=== PATIENT | male | born 1960 | race African-American/Black ===

== ENCOUNTER 2018-06-10 12:54 | Emergency (ER) | payer SELFPAY ==
[~2018-06-10] VITALS: Ht 193 cm; Wt 68.0 kg
[~2018-06-10 12:54] MED LIST: ASP81CT PO; ASP81TEC PO; BACL10TA PO; CLPD75T PO; CYCL10TA9 PO; HYDR-229 PO; META-84 PO; METO25TA2 PO; NAPR-243 PO; SMV20T PO; SULF1TAB35 PO
[2018-06-10] MEDS ORDERED: ASPIRIN 81 MG CHEW (CHILDREN'S ASA) ONE (12:58)
[2018-06-10] MEDS ORDERED: NITROGLYCERIN 0.4 MG SL TABS BTL 25'S SL ONE (12:58)
--- OUTSIDE RECORDS SUMMARY | 2018-06-10 12:58 | XMS REPORT | Continuity of Care Document ---
Author Author [facility] Organization [facility] Address Unknown Phone Unavailable Allergies Active Description Code Type Severity Reaction Onset Reported/Identified Relationship to Patient Clinical Status Yes No Known Drug Allergies [id number] Drug Allergy Unknown N/A 07/24/2010 Medications There is no data. Problems Date Dx Coded Attending Type Code Diagnosis Diagnosed By 02/12/2016 Ot 786.50 CHEST PAIN NOS 02/12/2016 BAIMA, LIMA L MANAGER FINANCIAL Ot 272.4 HYPERLIPIDEMIA NEC/NOS 02/12/2016 BAIMA, LIMA L MANAGER FINANCIAL Ot 414.00 CORON ATHEROSCLER NOS TYPE VESSEL, NATIV 01/21/2018 Ot 786.50 CHEST PAIN NOS 01/21/2018 BAIMA, LIMA L MANAGER FINANCIAL Ot 272.4 HYPERLIPIDEMIA NEC/NOS 01/21/2018 BAIMA, LIMA L MANAGER FINANCIAL Ot 414.00 CORON ATHEROSCLER NOS TYPE VESSEL, NATIV 01/21/2018 Ot 786.50 CHEST PAIN NOS 01/21/2018 BAIMA, LIMA L MANAGER FINANCIAL Ot 272.4 HYPERLIPIDEMIA NEC/NOS 01/21/2018 BAIMA, LIMA L MANAGER FINANCIAL Ot 414.00 CORON ATHEROSCLER NOS TYPE VESSEL, NATIV 01/21/2018 RACIEL MIGUEL MD Ot F10.10 ALCOHOL ABUSE, UNCOMPLICATED 01/21/2018 RACIEL MIGUEL MD Ot F15.10 OTHER STIMULANT ABUSE, UNCOMPLICATED 01/21/2018 RACIEL MIGUEL MD Ot F17.210 NICOTINE DEPENDENCE, CIGARETTES, UNCOMPL 01/21/2018 RACIEL MIGUEL MD Ot S12.300A UNSP DISP FX OF FOURTH CERVICAL VERTEBRA 01/21/2018 RACIEL MIGUEL MD Ot S12.400A UNSP DISP FX OF FIFTH CERVICAL VERTEBRA, 01/21/2018 RACIEL MIGUEL MD Ot W06.XXXA FALL FROM BED, INITIAL ENCOUNTER 01/21/2018 RACIEL MIGUEL MD Ot Y92.[address] [facility] 01/21/2018 RACIEL MIGUEL MD Ot Z79.02 EXTENSION SERVICE SPECIALIST IN CHARGE (CURRENT) USE OF ANTITHROMBOTI 01/21/2018 RACIEL MIGUEL MD Ot Z79.82 ASSISTED (CURRENT) USE OF ASPIRIN 01/24/2018 GREG LANCASTER MD Ot F10.10 ALCOHOL ABUSE, UNCOMPLICATED 01/24/2018 GREG LANCASTER MD Ot F15.10 OTHER STIMULANT ABUSE, UNCOMPLICATED 01/24/2018 GREG LANCASTER MD Ot R40.2142 COMA SCALE, EYES OPEN, SPONTANEOUS, EMR 01/24/2018 GREG LANCASTER MD Ot R40.2252 COMA SCALE, BEST VERBAL RESPONSE, ORIENT 01/24/2018 GREG LANCASTER MD Ot R40.2362 COMA SCALE, BEST MOTOR RESPONSE, OBEYS C 01/24/2018 GREG LANCASTER MD Ot R51 HEADACHE 01/24/2018 GREG LANCASTER MD Ot S01.01XA LACERATION WITHOUT FOREIGN BODY OF SCALP 01/24/2018 GREG LANCASTER MD Ot W06.XXXA FALL FROM BED, INITIAL ENCOUNTER 01/24/2018 GREG LANCASTER MD Ot W22.09XA STRIKING AGAINST OTHER STATIONARY OBJECT 01/24/2018 GREG LANCASTER MD Ot Y92.[address] [facility] 01/24/2018 GREG LANCASTER MD Ot Z79.02 ASSISTED (CURRENT) USE OF ANTITHROMBOTI 01/24/2018 GREG LANCASTER MD Ot Z79.82 ASSISTED (CURRENT) USE OF ASPIRIN 01/24/2018 RACIEL MIGUEL MD Ot F10.10 ALCOHOL ABUSE, UNCOMPLICATED 01/24/2018 RACIEL MIGUEL MD Ot F15.10 OTHER STIMULANT ABUSE, UNCOMPLICATED 01/24/2018 RACIEL MIGUEL MD Ot F17.210 NICOTINE DEPENDENCE, CIGARETTES, UNCOMPL 01/24/2018 RACIEL MIGUEL MD Ot S12.300A UNSP DISP FX OF FOURTH CERVICAL VERTEBRA 01/24/2018 RACIEL MIGUEL MD Ot S12.400A UNSP DISP FX OF FIFTH CERVICAL VERTEBRA, 01/24/2018 RACIEL MIGUEL MD Ot W06.XXXA FALL FROM BED, INITIAL ENCOUNTER 01/24/2018 RACIEL MIGUEL MD Ot Y92.[address] [facility] 01/24/2018 RACIEL MIGUEL MD Ot Z79.02 ASSISTED (CURRENT) USE OF ANTITHROMBOTI 01/24/2018 RACIEL MIGUEL MD Ot Z79.82 EXTENSION SERVICE SPECIALIST IN CHARGE (CURRENT) USE OF ASPIRIN Procedures There is no data. Results There is no data. Encounters ACCT No. Visit Date/Time Discharge Status Pt. Type Provider Facility Loc./Unit Complaint [id number] 01/21/2018 08:48:00 01/21/2018 12:12:00 DIS Emergency RACIEL MIGUEL MD [facility] ER FRACTURED NECK [id number] 01/21/2018 01:18:00 01/21/2018 03:11:00 DIS Outpatient GREG LANCASTER MD [facility] ER FALL FROM BUNK [id number] 04/22/2013 08:40:00 04/22/2013 23:59:59 CLS Outpatient LIMA FRAGA [facility] LAB CAD,COPD, HYPERLIPIDEMIA [id number] 12/30/2012 12:41:00 12/30/2012 23:59:59 CLS Outpatient [id number] 09/14/2012 07:43:00 Document Registration
[2018-06-10] MEDS: NITROGLYCERIN 0.4 MG SL TABS BTL 25'S SL PRN ×2 (13:04→13:17)
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
[2018-06-10 13:10] LABS: BASOPHILS % (AUTO) 1 % (0-10); EOSINOPHILS # (AUTO) 0.3 10^3/uL (0.0-0.3); EOSINOPHILS % (AUTO) 4 % (0-10); HEMATOCRIT 42 % (40-54); HEMOGLOBIN 14.1 G/DL (13.3-17.7); LYMPHOCYTES # (AUTO) 3.3 X 10^3 (1.0-4.0); LYMPHOCYTES % (AUTO) 50 % (12-44); MEAN CORPUSCULAR HEMOGLOBIN 28 PG (25-34); MEAN CORPUSCULAR HGB CONC 33 G/DL (32-36); MEAN CORPUSCULAR VOLUME 84 FL (80-99); MEAN PLATELET VOLUME 9.5 FL (7.4-10.4); MONOCYTES # (AUTO) 0.6 X 10^3 (0.0-1.0); MONOCYTES % (AUTO) 9 % (0-12); NEUTROPHILS # (AUTO) 2.5 X 10^3 (1.8-7.8); NEUTROPHILS % (AUTO) 37 % (42-75); PLATELET COUNT 244 10^3/uL (130-400); RED BLOOD COUNT 5.07 10^6/uL (4.35-5.85); RED CELL DISTRIBUTION WIDTH 14.4 % (10.0-14.5); WHITE BLOOD COUNT 6.6 10^3/uL (4.3-11.0)
[2018-06-10] MEDS ORDERED: ASPIRIN 81 MG CHEW (CHILDREN'S ASA) PO ONE (13:15)
[2018-06-10 13:17] VITALS: BP 123/93
[2018-06-10 13:22] LABS: ALANINE AMINOTRANSFERASE 24 U/L (0-55); ALBUMIN 4.3 GM/DL (3.2-4.5); ALKALINE PHOSPHATASE 52 U/L (40-136); BILIRUBIN,TOTAL 0.6 MG/DL (0.1-1.0); BUN/CREATININE RATIO 14; CALCIUM 9.3 MG/DL (8.5-10.1); CARBON DIOXIDE 27 MMOL/L (21-32); CHLORIDE 104 MMOL/L (98-107); CREATININE SERUM 1.31 MG/DL (0.60-1.30); GFR ESTIMATED > 60; GLUCOSE 142 MG/DL (70-105); MAGNESIUM 2.3 MG/DL (1.8-2.4); POTASSIUM 4.1 MMOL/L (3.6-5.0); SODIUM 140 MMOL/L (135-145); TOTAL PROTEIN 7.3 GM/DL (6.4-8.2)
--- NOTE | 2018-06-10 13:28 | NUR ---
PAIN REMAINS 02/12
[2018-06-10 13:29] LABS: MYOGLOBIN SERUM 91.1 NG/ML (10.0-92.0)
[2018-06-10] MEDS ORDERED: KETOROLAC 30 MG/ML VIAL IVP ONE (13:45)
[2018-06-10 13:53] LABS: PROTHROMBIN TIME PATIENT 13.5 SEC (12.2-14.7)
[2018-06-10 13:54] VITALS: BP 132/92
--- NOTE | 2018-06-10 14:12 | Diagnostic Imaging Report ---
EXAMINATION: AP upright portable chest INDICATION: Chest pain. COMPARISON: Chest radiographs performed on 07/26/2012. FINDINGS: The lungs are clear and the pulmonary vasculature is normal. No pneumothorax or large pleural effusion. The cardiomediastinal silhouette is unchanged. No acute osseous abnormality. IMPRESSION: No acute chest disease. No significant change from prior. Dictated by: Dictated on workstation # [id number]
[2018-06-10 16:10] VITALS: BP 159/90
== END 2018-06-10 16:10 | disposition home or self-care (01) ==
LOC: EDUNIT# 12:54 → ER 12:55
DX: R07.89 Other chest pain (principal); I25.10 Atherosclerotic heart disease of native coronary artery without angina pectoris; I10 Essential (primary) hypertension; F15.10 Other stimulant abuse, uncomplicated; F17.210 Nicotine dependence, cigarettes, uncomplicated; Z79.02 Long term (current) use of antithrombotics/antiplatelets; Z95.5 Presence of coronary angioplasty implant and graft; Z79.82 Long term (current) use of aspirin
CPT/HCPCS: 36415; 71045; 80053; 83735; 83874; 84484; 85025; 85610; 85730; 93005; 96374

== ENCOUNTER 2019-08-24 00:31 | Emergency (ER) | payer SELFPAY ==
[~2019-08-24] VITALS: Ht 182.8 cm; Wt 73.7 kg
--- OUTSIDE RECORDS SUMMARY | 2019-08-24 00:48 | XMS REPORT | Continuity of Care Document ---
Author Organization Unknown Address Unknown Phone Unavailable Allergies Active Description Code Type Severity Reaction Onset Reported/Identified Relationship to Patient Clinical Status Yes No Known Drug Allergies [id number] Drug Allergy Unknown N/A 07/24/2010 Medications There is no data. Problems Date Dx Coded Attending Type Code Diagnosis Diagnosed By 02/12/[address] PAIN NOS 02/12/2016 BAIMATEGANLIMA L AUTO SPECIALTY SERVICES MANAGER Ot 272.4 HYPERLIPIDEMIA NEC/NOS 02/12/2016 BAIMA, LIMA L AUTO SPECIALTY SERVICES MANAGER Ot 414.00 CORON ATHEROSCLER NOS TYPE VESSEL, NATIV 01/21/[address] PAIN NOS 01/21/2018 BAIMA, LIMA Catherine AUTO SPECIALTY SERVICES MANAGER Ot 272.4 HYPERLIPIDEMIA NEC/NOS 01/21/2018 BAIMA LIMA L AUTO SPECIALTY SERVICES MANAGER Ot 414.00 CORON ATHEROSCLER NOS TYPE VESSEL, NATIV 01/21/2018 GREG LANCASTER MD Ot F10. 10 ALCOHOL ABUSE, UNCOMPLICATED 01/21/2018 GREG LANCASTER MD Ot F15. 10 OTHER STIMULANT ABUSE, UNCOMPLICATED 01/21/2018 GREG LANCASTER MD Ot R40.2142 COMA SCALE, EYES OPEN, SPONTANEOUS, EMR 01/21/2018 GREG LANCASTER MD Ot R40.2252 COMA SCALE, BEST VERBAL RESPONSE, ORIENT 01/21/2018 GREG LANCASTER MD Ot R40.2362 COMA SCALE, BEST MOTOR RESPONSE, OBEYS C 01/21/2018 GREG LANCASTER MD Ot R51 HEADACHE 01/21/2018 GREG LANCASTER MD Ot S01.01XA LACERATION WITHOUT FOREIGN BODY OF SCALP 01/21/2018 GREG LANCASTER MD Ot W06.XXXA FALL FROM BED, INITIAL ENCOUNTER 01/21/2018 GREG LANCASTER MD Ot W22.09XA STRIKING AGAINST OTHER STATIONARY OBJECT 01/21/2018 GREG LANCASTER MD Ot Y92.[address] [facility] 01/21/2018 GREG LANCASTER MD Ot Z79. 02 SNF (CURRENT) USE OF ANTITHROMBOTI 01/21/2018 GREG LANCASTER MD Ot Z79. 82 SNF (CURRENT) USE OF ASPIRIN 01/21/[address] PAIN NOS 01/21/2018 BAIMALIMA L AUTO SPECIALTY SERVICES MANAGER Ot 272.4 HYPERLIPIDEMIA NEC/NOS 01/21/2018 BAIMALIMA L AUTO SPECIALTY SERVICES MANAGER Ot 414.00 CORON ATHEROSCLER NOS TYPE VESSEL, NATIV 01/21/2018 RACIEL MIGUEL MD Ot F10. 10 ALCOHOL ABUSE, UNCOMPLICATED 01/21/2018 RACIEL MIGUEL MD Ot F15. 10 OTHER STIMULANT ABUSE, UNCOMPLICATED 01/21/2018 RACIEL MIGUEL MD Ot F17.210 NICOTINE DEPENDENCE, CIGARETTES, UNCOMPL 01/21/2018 RACIEL MIGUEL MD Ot S12.300A UNSP DISP FX OF FOURTH CERVICAL VERTEBRA 01/21/2018 RACIEL MIGUEL MD, Ot S12.400A UNSP DISP FX OF FIFTH CERVICAL VERTEBRA, 01/21/2018 RACIEL MIGUEL MD Ot W06.XXXA FALL FROM BED, INITIAL ENCOUNTER 01/21/2018 RACIEL MIGUEL MD Ot Y92.[address] [facility] 01/21/2018 RACIEL MIGUEL MD Ot Z79. 02 SNF (CURRENT) USE OF ANTITHROMBOTI 01/21/2018 RACIEL MIGUEL MD Ot Z79. 82 INDUSTRIAL PLANT CUSTODIAN (CURRENT) USE OF ASPIRIN 01/24/2018 GREG LANCASTER MD Ot F10. 10 ALCOHOL ABUSE, UNCOMPLICATED 01/24/2018 GREG LANCASTER MD Ot F15. 10 OTHER STIMULANT ABUSE, UNCOMPLICATED 01/24/2018 GREG LANCASTER [...] LANCASTER MD Ot Y92.[address] [facility] 01/24/2018 GREG LANCASTER MD Ot Z79. 02 SNF (CURRENT) USE OF ANTITHROMBOTI 01/24/2018 GREG LANCASTER MD Ot Z79. 82 SNF (CURRENT) USE OF ASPIRIN 01/24/2018 RACIEL MIGUEL MD Ot F10. 10 ALCOHOL ABUSE, UNCOMPLICATED 01/24/2018 RACIEL MIGUEL MD Ot F15. 10 OTHER STIMULANT ABUSE, UNCOMPLICATED 01/24/2018 RACIEL MIGUEL MD Ot F17.210 NICOTINE DEPENDENCE, CIGARETTES, UNCOMPL 01/24/2018 RACIEL MIGUEL MD Ot S12.300A UNSP DISP FX OF FOURTH CERVICAL VERTEBRA 01/24/2018 RACIEL MIGUEL MD, Ot S12.400A UNSP DISP FX OF FIFTH CERVICAL VERTEBRA, 01/24/2018 RACIEL MIGUEL MD Ot W06.XXXA FALL FROM BED, INITIAL ENCOUNTER 01/24/2018 RACIEL MIGUEL MD Ot Y92.[address] [facility] 01/24/2018 RACIEL MIGUEL MD Ot Z79. 02 INDUSTRIAL PLANT CUSTODIAN (CURRENT) USE OF ANTITHROMBOTI 01/24/2018 RACIEL MIGUEL MD Ot Z79. 82 INDUSTRIAL PLANT CUSTODIAN (CURRENT) USE OF ASPIRIN 06/12/2018 GREG LANCASTER MD Ot F15. 10 OTHER STIMULANT ABUSE, UNCOMPLICATED 06/12/2018 GREG LANCASTER MD Ot F17.210 NICOTINE DEPENDENCE, CIGARETTES, UNCOMPL 06/12/2018 GREG LANCASTER MD Ot I10 ESSENTIAL (PRIMARY) HYPERTENSION 06/12/2018 GREG LANCASTER MD Ot I25. 10 ATHSCL HEART DISEASE OF [place] CORONARY 06/12/2018 GREG LANCASTER MD Ot R07. 89 OTHER CHEST PAIN 06/12/2018 GREG LANCASTER MD Ot Z79. 02 SNF (CURRENT) USE OF ANTITHROMBOTI 06/12/2018 GREG LANCASTER MD Ot Z79. 82 INDUSTRIAL PLANT CUSTODIAN (CURRENT) USE OF ASPIRIN 06/12/2018 GREG LANCASTER MD Ot Z95. 5 PRESENCE OF CORONARY ANGIOPLASTY IMPLANT Procedures There is no data. Results Test Result Range Complete blood count (CBC) with automate d white blood cell (WBC) differential - 06/10/18 13:01 Blood leukocytes automated count (number/volume) 6.6 10*3/uL 4.3-11.0 Blood erythrocytes automated count (number/volume) 5.07 10*6/uL 4.35-5.85 Venous blood hemoglobin measurement (mass/volume) 14.1 g/dL 13.3-17.7 Blood hematocrit (volume fraction) 42 % 40-54 Automated erythrocyte mean corpuscular volume 84 [ foz_us] 80-99 Automated erythrocyte mean corpuscular h emoglobin (mass per erythrocyte) 28 pg 25-34 Automated erythrocyte mean corpuscular h emoglobin concentration measurement (mass/volume) 33 g/dL 32-36 Automated erythrocyte distribution width ratio 14. 4 % 10.0- 14.5 Automated blood platelet count (count/volume) 244 10*3/uL 130-400 Automated blood platelet mean volume measurement 9.5 [foz_us] 7.4-10.4 Automated blood neutrophils/100 leukocytes 37 % 42-75 Automated blood lymphocytes/100 leukocytes 50 % 12-44 Blood monocytes/100 leukocytes 9 % 0-12 Automated blood eosinophils/100 leukocytes 4 % 0-10 Automated blood basophils/100 leukocytes 1 % 0-10 Blood neutrophils automated count (number/volume) 2.5 10*3 1.8-7.8 Blood lymphocytes automated count (number/volume) 3.3 10*3 1.0-4.0 Blood monocytes automated count (number/volume) 0. 6 10*3 0.0-1.0 Automated eosinophil count 0.3 10*3/uL 0 .0-0.3 Automated blood basophil count (count/volume) 0.0 10*3/uL 0.0-0.1 Comprehensive metabolic panel - 06/10/18 13:01 Serum or plasma sodium measurement (moles/volume) 140 mmol/L 135-145 Serum or plasma potassium measurement (moles/volume) 4.1 mmol/L 3.6-5.0 Serum or plasma chloride measurement (moles/volume) 104 mmol/L 98-107 Carbon dioxide 27 mmol/L 21-32 Serum or plasma anion gap determination (moles/volume) 9 mmol/L 5-14 Serum or plasma urea nitrogen measurement (mass/volume ) 18 mg/dL 7-18 Serum or plasma creatinine measurement (mass/volume) 1.31 mg/dL 0.60-1.30 Serum or plasma urea nitrogen/creatinine mass ratio 14 NRG Serum or plasma creatinine measurement w ith calculation of estimated glomerular filtration rate > NRG Serum or plasma glucose measurement (mass/volume) 142 mg/dL 70-105 Serum or plasma calcium measurement (mass/volume) 9.3 mg/dL 8.5-10.1 Serum or plasma total bilirubin measurement (mass/volu me) 0.6 mg/dL 0.1-1.0 Serum or plasma alkaline phosphatase gurmeet surement (enzymatic activity/volume) 52 U/L 40-136 Serum or plasma aspartate aminotransfera se measurement (enzymatic activity/volume) 20 U/L 5-34 Serum or plasma alanine aminotransferase measurement (enzymatic activity/volume) 24 U/L 0-55 Serum or plasma protein measurement (mass/volume) 7.3 g/dL 6.4-8.2 Serum or plasma albumin measurement (mass/volume) 4.3 g/dL 3.2-4.5 CALCIUM CORRECTED 9.1 mg/dL 8.5-10.1 Magnesium - 06/10/18 13:01 Magnesium 2.3 mg/dL 1.8-2.4 Serum or plasma troponin i.cardiac measu rement (mass/volume) - 06/10/18 13:01 Serum or plasma troponin i.cardiac measurement (mass/v olume) < ng/mL <0.028 Myoglobin, serum - 06/10/18 13:01 Myoglobin, serum 91.1 ng/mL 10.0-92.0 PT panel in platelet poor plasma by coag ulation assay - 06/10/18 13:01 Prothrombin time (PT) in platelet poor plasma by coagu lation assay 13.5 s 12.2-14.7 INR in platelet poor plasma or blood by coagulation as say 1.0 0.8-1.4 Activated partial thromboplastin time (a PTT) in platelet poor plasma bycoagulation assay - 06/10/18 13:01 Activated partial thromboplastin time (a PTT) in platelet poor plasma bycoagulation assay 36 s 24-35 Serum or plasma troponin i.cardiac measu rement (mass/volume) - 06/10/18 15:00 Serum or plasma troponin i.cardiac measurement (mass/v olume) < ng/mL <0.028 Encounters ACCT No. Visit Date/Time Discharge Status Pt. Type Provider Facility Loc./Unit Complaint [id number] 06/10/2018 12:55:00 019 16:10:00 DIS Outpatient ANISHA BOWENS, GREG Christianson [facility] ER CP [id number] 01/21/2018 08:48:00 018 12:12:00 DIS Emergency MYRIAM BOWENS, RACIEL Gonzalez [facility] ER FRACTURED NECK [id number] 01/21/2018 01:18:00 018 03:11:00 DIS Emergency ANISHA BOWENS, GREG Christianson [facility] ER FALL FROM BUNK [id number] 04/22/2013 08:40:00 013 23:59:59 CLS Outpatient LIMA FRAGA [facility] LAB CAD,COPD,HYPERL IPIDEMIA [id number] 12/30/2012 12:41:00 013 23:59:59 CLS Outpatient [id number] 09/14/2012 07:43:00 Document Registration
[2019-08-24] MEDS ORDERED: NS IV 1000 ML 1,000 ML IV SCH (01:12)
[2019-08-24] MEDS ORDERED: RT-ALBUTEROL/IPRATROPIUM 3 ML (DUONEB) VIAL INH ONE (01:15)
[2019-08-24] MEDS ORDERED: cefTRIAXone FOR IV USE 1,000 MG in WATER (STERILE) FOR INJECTION 10 ML IV ONE (01:15)
[2019-08-24] MEDS ORDERED: AZITHROMYCIN INJECTION 500 MG in NS (IVPB) 250 ML IV ONE (01:15)
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
[2019-08-24 01:50] LABS: BASOPHILS % (AUTO) 0 % (0-10); EOSINOPHILS # (AUTO) 0.1 10^3/uL (0.0-0.3); EOSINOPHILS % (AUTO) 1 % (0-10); HEMATOCRIT 39 % (40-54); HEMOGLOBIN 12.9 G/DL (13.3-17.7); LYMPHOCYTES % (AUTO) 13 % (12-44); MEAN CORPUSCULAR HEMOGLOBIN 28 PG (25-34); MEAN CORPUSCULAR HGB CONC 33 G/DL (32-36); MEAN CORPUSCULAR VOLUME 85 FL (80-99); MEAN PLATELET VOLUME 10.2 FL (7.4-10.4); MONOCYTES # (AUTO) 1.7 X 10^3 (0.0-1.0); MONOCYTES % (AUTO) 11 % (0-12); NEUTROPHILS # (AUTO) 11.6 X 10^3 (1.8-7.8); NEUTROPHILS % (AUTO) 76 % (42-75); PLATELET COUNT 225 10^3/uL (130-400); RED CELL DISTRIBUTION WIDTH 13.7 % (10.0-14.5); WHITE BLOOD COUNT 15.4 10^3/uL (4.3-11.0)
[2019-08-24 01:56] LABS: INR 1.1 (0.8-1.4); PROTHROMBIN TIME PATIENT 14.8 SEC (12.2-14.7)
[2019-08-24 02:01] LABS: BAND NEUTROPHILS 1 %; LYMPHOCYTES % (MANUAL) 12 %; MONOCYTES % (MANUAL) 13 %; NEUTROPHILS % (MANUAL) 74 %; RBC MORPH NORMAL
[2019-08-24 02:06] LABS: ALANINE AMINOTRANSFERASE 26 U/L (0-55); ALBUMIN 3.8 GM/DL (3.2-4.5); ALKALINE PHOSPHATASE 67 U/L (40-136); BILIRUBIN,TOTAL 0.5 MG/DL (0.1-1.0); BUN/CREATININE RATIO 12; CALCIUM 8.8 MG/DL (8.5-10.1); CARBON DIOXIDE 22 MMOL/L (21-32); CHLORIDE 102 MMOL/L (98-107); CREATININE SERUM 1.21 MG/DL (0.60-1.30); GFR ESTIMATED > 60; GLUCOSE 157 MG/DL (70-105); POTASSIUM 4.1 MMOL/L (3.6-5.0); SODIUM 135 MMOL/L (135-145); TOTAL PROTEIN 7.4 GM/DL (6.4-8.2)
[2019-08-24] MEDS ORDERED: NS IV 500 ML 500 ML IV ONE (02:16)
[2019-08-24] MEDS ORDERED: ONDANSETRON 4 MG/2 ML (SDV) Z0FRAN IVP ONE (02:30)
[2019-08-24] MEDS ORDERED: CEFD300C3 PO (02:39)
[2019-08-24] MEDS ORDERED: ONDA4TAB11 PO (02:39)
[2019-08-24] MEDS ORDERED: AZIT250T12 PO (02:39)
[2019-08-24] MEDS ORDERED: IPRA3AMP31 IH (02:39)
[2019-08-24] MEDS ORDERED: RX-ONDANSETRON 4 MG ODT (ZOFRAN) PPK #4 PO STA (02:44)
[2019-08-24] MEDS ORDERED: RX-ALBUTEROL NEB 2.5 MG/3 ML PACK #5 IH STA (02:44)
[2019-08-24 03:27] LABS: BILIRUBIN,URINE NEGATIVE (NEGATIVE); CLARITY,URINE CLEAR; COLOR,URINE YELLOW; GLUCOSE, URINE (UA) NEGATIVE (NEGATIVE); KETONES,URINE NEGATIVE (NEGATIVE); LEUKOCYTE ESTERASE ,URINE NEGATIVE (NEGATIVE); NITRITE,URINE NEGATIVE (NEGATIVE); PH,URINE 6.5 (5-9); PROTEIN,URINE NEGATIVE (NEGATIVE)
[2019-08-24 03:30] VITALS: BP 152/96
[2019-08-24 03:52] LABS: BACTERIA,URINE NEGATIVE /HPF
--- NOTE | 2019-08-24 07:01 | Diagnostic Imaging Report ---
INDICATION: Shortness of air. COMPARISON: 06/10/2018 TECHNIQUE: Single frontal view of the chest. FINDINGS: Mild interstitial and airspace opacities are seen in the right midlung and the left lung base. No pleural effusion or pneumothorax is seen. The cardiac silhouette is normal in size. IMPRESSION: 1. Multifocal opacities in the bilateral lungs, concerning for infection in the appropriate clinical setting. Dictated by: Dictated on workstation # [id number]
== END 2019-08-24 03:31 | disposition home or self-care (01) ==
LOC: EDUNIT# 00:31 → ER 00:36
DX: J18.9 Pneumonia, unspecified organism (principal); I25.10 Atherosclerotic heart disease of native coronary artery without angina pectoris; J44.9 Chronic obstructive pulmonary disease, unspecified; F17.210 Nicotine dependence, cigarettes, uncomplicated; Z79.82 Long term (current) use of aspirin; Z95.5 Presence of coronary angioplasty implant and graft
CPT/HCPCS: 36415; 71045; 80053; 81000; 83605; 83880; 84484; 85007; 85027; 85610; 85730; 86141; 87040; 87070; 87088; 87205; 87804; 93005; 94640; 96361; 96365; 96375

== ENCOUNTER → 2020-09-14 | Outpatient (CLI) | payer SELFPAY ==
[~2020-09-14] MED LIST changes: +AZIT250T12 PO; +CATHETER FLUSH 10 ML SYR IV PRN; +CEFD300C3 PO; +HOLD METFORMIN - RECEIVED CONTRAST 20 ML VIAL IV SCH; +IOHEXOL 350 MG/ML 100 ML (OMNIPAQUE 350) VIAL IV ONE; +IPRA3AMP31 IH; +NS 100 ML (IVPB) BAG IV ONE; +ONDA4TAB11 PO
[2020-09-14 09:00] LABS: BILIRUBIN,TOTAL 0.4 MG/DL (0.1-1.0); CALCIUM 8.8 MG/DL (8.5-10.1); CREATININE SERUM 1.57 MG/DL (0.60-1.30); POTASSIUM 4.2 MMOL/L (3.6-5.0); TOTAL PROTEIN 6.9 GM/DL (6.4-8.2)
--- NOTE | 2020-09-14 11:00 | Diagnostic Imaging Report ---
EXAM: CT pelvis with intravenous contrast. DATE: September 14, 2020. INDICATION: 60-year-old male, hematuria. COMPARISON: None available. TECHNIQUE: Axial CT images of the pelvis were obtained following the intravenous administration of contrast. Coronal and sagittal reformats were obtained and provided. All CT scans use one or more of the following dose optimizing techniques: automated exposure control, MA and/or KvP adjustment based on a patient size and exam type, or iterative reconstruction. . FINDINGS: The visualized segments of the intestinal tract are not distended. There is no identified abnormal urinary bladder wall thickening. There is no abnormal distention of the distal ureters or visualized distal ureteral stone. There are atherosclerotic calcifications. There is no identified abnormally enlarged lymph node in the pelvis meeting CT size criteria for adenopathy. CT does not well assess for prostate cancer. The prostate gland appears to be within normal limits in size. There is no identified acute bony abnormality. IMPRESSION: 1. Unremarkable CT evaluation of the urinary bladder. 2. The prostate gland is not well assessed on CT although appears within normal limits in size. 3. No identified acute abnormality in the pelvis. Dictated by: Dictated on workstation # [id number]
== END ==
LOC: RAD 08:18
PROVIDERS: ATTEND Pediatrics
DX: R31.9 Hematuria, unspecified (principal)
CPT/HCPCS: 36415; 72193; 80053

== ENCOUNTER 2021-02-01 22:40 | Emergency (ER) | payer SELFPAY ==
[~2021-02-01] VITALS: Ht 182.9 cm; Wt 69.9 kg
[~2021-02-01 22:40] MED LIST changes: -CATHETER FLUSH 10 ML SYR IV PRN; -HOLD METFORMIN - RECEIVED CONTRAST 20 ML VIAL IV SCH; -IOHEXOL 350 MG/ML 100 ML (OMNIPAQUE 350) VIAL IV ONE; -NS 100 ML (IVPB) BAG IV ONE; -SULF1TAB35 PO; +SULF1TAB38 PO
[2021-02-01] MEDS ORDERED: CLINDAMYCIN 900 MG/50 ML IVPB 50 ML IV ONE (23:15)
[2021-02-01] MEDS ORDERED: KETOROLAC 30 MG/ML VIAL IVP ONE (23:15)
[2021-02-01 23:31] LABS: BASOPHILS # (AUTO) 0.1 10^3/uL (0.0-0.1); BASOPHILS % (AUTO) 1 % (0-10); EOSINOPHILS # (AUTO) 0.2 10^3/uL (0.0-0.3); EOSINOPHILS % (AUTO) 3 % (0-10); HEMATOCRIT 40 % (40-54); HEMOGLOBIN 12.6 g/dL (13.3-17.7); LYMPHOCYTES # (AUTO) 2.4 10^3/uL (1.0-4.0); LYMPHOCYTES % (AUTO) 30 % (12-44); MEAN CORPUSCULAR HEMOGLOBIN 28 pg (25-34); MEAN CORPUSCULAR HGB CONC 32 g/dL (32-36); MEAN CORPUSCULAR VOLUME 87 fL (80-99); MONOCYTES # (AUTO) 1.2 10^3/uL (0.0-1.0); MONOCYTES % (AUTO) 14 % (0-12); NEUTROPHILS # (AUTO) 4.3 10^3/uL (1.8-7.8); NEUTROPHILS % (AUTO) 53 % (42-75); PLATELET COUNT 252 10^3/uL (130-400); WHITE BLOOD COUNT 8.1 10^3/uL (4.3-11.0)
[2021-02-01 23:42] LABS: ALBUMIN 4.2 GM/DL (3.2-4.5); POTASSIUM 4.3 MMOL/L (3.6-5.0)
[2021-02-01 23:43] LABS: CALCIUM 9.4 MG/DL (8.5-10.1)
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
[2021-02-01 23:45] LABS: TOTAL PROTEIN 8.1 GM/DL (6.4-8.2)
[2021-02-01 23:47] LABS: BILIRUBIN,TOTAL 0.5 MG/DL (0.1-1.0)
[2021-02-01 23:49] LABS: CREATININE SERUM 1.25 MG/DL (0.60-1.30)
[2021-02-01 23:52] LABS: ERYTHROCYTE SEDIMENTATION RATE 41 MM/HR (0-30)
[2021-02-01] MEDS ORDERED: CLIN300C12 PO (23:59)
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
[2021-02-02 00:25] VITALS: BP 152/98
== END 2021-02-02 00:25 | disposition left against medical advice (07) ==
LOC: EDUNIT# 22:40 → ER 22:42
DX: K04.7 Periapical abscess without sinus (principal); L03.211 Cellulitis of face; I10 Essential (primary) hypertension; F17.210 Nicotine dependence, cigarettes, uncomplicated; Z87.820 Personal history of traumatic brain injury; Z79.82 Long term (current) use of aspirin
CPT/HCPCS: 36415; 70486; 80053; 85025; 85652; 86141